=== PATIENT | female | born 1995 | race Caucasian/White ===

== ENCOUNTER 2018-01-07 15:22 | Emergency (ER) | payer BC, SELFPAY ==
[2018-01-07 15:23] VITALS: BP 137/84; PULSE 85; RESP 16; TEMP 36.9; O2SAT 97; BMI 42.0
[2018-01-07] MEDS: 0.9% Normal Saline 1,000 ML 1000 ML IV (16:05)
[2018-01-07] MEDS: Ondansetron 4 MG/2 ML Vial IV (16:05)
[2018-01-07 16:07] LABS: Absolute Lymphocyte Count 3.08 X10^3/ul (0.83-4.51); Absolute Neutrophil Count 5.3 X10^3/uL (2.0-7.7); Basophil# 0.04 X10^3/uL; Basophil% 0.4 % (0-1); Eosinophil# 0.21 X10^3/uL; Eosinophils% 2.3 % (0-5); Hematocrit 42.7 % (37-47); Hemoglobin 14.2 g/dl (12.0-15.0); Lymphocyte # 3.08 X10^3/ul (4.0); Lymphocyte % 33.4 % (19-41); Mean Corp Hgb Conc 33.3 g/gl (32-36); Mean Corpuscular Hgb 29.6 pg (27.0-32.0); Mean Corpuscular Volume 89.1 fL (81-99); Mean Platelet Vol. 9.9 fl (6.2-12.0); Monocyte# 0.62 X10^3/uL; Monocyte% 6.7 % (0-10); Neutrophil # 5.26 X10^3/uL (2.7-7.7); Platelet Count 328 K/mm3 (150-450); RBC Distribution Width CV 13.3 % (11.6-14.6); RBC Distribution Width SD 43.8 fl (35.1-43.9); Red Blood Count 4.79 M/mm3 (4.2-5.4); White Blood Count 9.2 K/mm3 (4.4-11.0)
[2018-01-07 16:10] LABS: POSITIVE COUNT NO; POSITIVE DIFFERENTIAL NO; POSITIVE MORPHOLOGY NO
[2018-01-07 16:16] LABS: Anion Gap 11 (5-15); BUN 10 mg/dL (7-18); BUN/Creat Ratio 14.6 RATIO (10-20); Calcium,Total 8.6 mg/dL (8.5-10.1); Chloride 111 mmol/L (98-107); Creatinine, Serum 0.68 mg/dL (0.55-1.02); EST Glomerular Filtration Rate 116 mL/min (>60); Est Glom Filt Rate - Afr Amer 140 mL/min (>60); Estimated Creatinine Clearance 104.37 ml/min; Glucose 91 mg/dL (74-106); Sodium Level 143 mmol/L (136-145)
[2018-01-07 16:33] LABS: Bacteria 0 SEEN /hpf (None Seen); Mucous, Urine 0 SEEN /hpf (<or=2+); Red Blood Cells-Urine 0 SEEN /hpf (0-5); Squamous Epithelial Cells - UA 0 SEEN /hpf (5-10); White Blood Cells 0 SEEN /hpf (0-5)
[2018-01-07 16:44] LABS: Pregnancy, Serum, hCG Quali. NEGATIVE Negative (0-9 Nonpreg)
[2018-01-07 16:46] LABS: Color, Urine Yellow (Yellow); Glucose, Dipstick Normal (Normal); Ketone-Dipstick Negative (Negative); Leukocyte Esterase-Dipstick Negative /ul (Negative); Nitrite-Dipstick Negative (Negative); Occult Blood-Urine Negative /ul (Negative); Protein-Dipstick Negative (Negative); Urine Bilirubin Dipstick Negative (Negative); Urine Clarity Clear (Clear); Urine Urobilinogen Normal (Normal); Urine pH 6.5 (5.0 - 8.0)
[2018-01-07 17:34] VITALS: BP 121/72; PULSE 74; RESP 16; O2SAT 100
--- NOTE | 2018-01-07 18:32 | ED.DCSUM_ITS ---
- ER Visit Summary Date of Service: 01/07/18 Chief Complaint: Vomiting History of Present Illness: The patient is a [address] Hamm. She reports that approximately an hour ago she vomited once. She was reports that this was preceded by 2 episodes of retching. States when she did not vomit it was dark brown with black specks. She denies any bright red blood in her emesis. She reports that she has aching right-sided abdominal pain that began after vomiting. 510 hours and 3-10 currently. She also reports she has had diarrhea twice a day for the past few days. She denies any blood in her stools or black tarry stools. No dysuria frequency. She has a Nexplanon and has not had a period for quite some time. Physical Examination: Vitals: Stable. Afebrile. General: Well-nourished and well-developed. Head: Normocephalic atraumatic. Neck: Supple, no lymphadenopathy. No JVD. Nontender. Cardiovascular: Regular rate and rhythm. No murmurs. Respiratory: No respiratory distress. Clear to auscultation bilaterally. Abdominal: Soft, mild right lower quadrant tenderness to palpation, nondistended , normal bowel sounds. No guarding, rebound, or peritoneal signs. Back: Nontender. Extremities: Nontender, no edema. Skin: Normal color, no rash. Neurologic: Alert and oriented ?3. Cranial nerves II through XII are intact. Normal strength and sensation. Psych: Normal affect. Test Results: CBC is normal. Chem-7 is normal with a chloride of 111. BUN is normal. UA is negative. Parents test is negative. CT abdomen pelvis is normal. With a normal appendix. Emergency Department Course and Treatment: Patient refused any pain or nausea medications. A prolonged discussion with her about the likely etiology of her coffee-ground emesis being from a Beth-Cannon tear. She is refusing NG tube. Treatment Plan: Clinically the patient is stable. She has had no further vomiting or diarrhea while here. She will be discharged with Zofran instructed follow-up her primary care physician 1 to days not improving. Did discuss that if she develops melanotic stool she should return to emerge department. Disposition: To home in improved and stable condition. Impression: 1. Vomiting. 2. Hematemesis, suspect Beth-Cannon tear. This note was generated with Dragon dictation software. It may contain incorrect words, spelling, and punctuation that were not noted in review of the chart prior to signing ED Disposition - Plan for ED Patient: Disposition: Home or Assisted Living Chief Complaint: GI Bleed Instructions: ED Bleed UGI Stable Prescriptions: Ondansetron [Zofran Odt] 4 mg PO Q8H PRN PRN #10 tablet PRN Reason: Nausea Referrals: Bj Hamm MD [Primary Care Provider] - 3-5 Days if not improving
[2018-01-07 18:45] VITALS: BP 120/70; PULSE 87; RESP 18; O2SAT 100
== END 2018-01-07 18:46 | disposition home or self-care (01) ==
PROVIDERS: Emergency Provider Emergency Medicine; Family Provider Family Medicine; PCP Family Medicine
DX: R11.10 Vomiting, unspecified (principal); K92.0 Hematemesis; R19.7 Diarrhea, unspecified; F17.200 Nicotine dependence, unspecified, uncomplicated
CPT/HCPCS: 74177; 80048; 81001; 84703; 85025; 96361; 96374; 99284; J7030; Q9967; A4216; J2405